=== PATIENT | male | born 1995 | race Caucasian/White ===

== ENCOUNTER 2020-02-13 14:48 | Emergency (ER) | payer OTHER ==
[~2020-02-13] VITALS: Ht 180.3 cm; Wt 92.3 kg
[2020-02-13 14:49] VITALS: BP 123/56
== END 2020-02-13 16:35 | disposition home or self-care (01) ==
LOC: M ED 14:48
DX: J06.9 Acute upper respiratory infection, unspecified (principal); Z20.828 Contact with and (suspected) exposure to other viral communicable diseases
CPT/HCPCS: 99282; U0003